=== PATIENT | female | born 1945 | race Caucasian/White ===

== ENCOUNTER 2020-10-21 17:19 | Inpatient (IN) | payer MEDICARE, OTHER ==
[~2020-10-21] VITALS: Ht 154.9 cm; Wt 61.7 kg
--- NOTE | 2020-10-21 17:19 | NUR ---
PT BIB FRIEND C/O COUGH, BODY PAIN X 1 WEEK. PT IS AAOX4, NOT IN RESPIRATORY DISTRESS, HOOKED TO BOILER CONTROL ROOM OPERATOR, KEPT RESTED AND COMFORTABLE. WILL CONTINUE TO MONITOR.
[2020-10-21] MEDS ORDERED: LEVO88TA5 PO (17:46)
[2020-10-21] MEDS ORDERED: ATOR40TA PO (17:46)
[2020-10-21] MEDS ORDERED: ISOS30TA86 PO (17:46)
[2020-10-21] MEDS ORDERED: BUPR100T7 PO (17:46)
--- NOTE | 2020-10-21 18:15 | NUR ---
IV LINE ESTABLISHED BLOOD DRAWN AND SENT TO LAB.
--- NOTE | 2020-10-21 18:20 | NUR ---
CATERER'S AIDE AT BEDSIDE FOR XRAY.
[2020-10-21] MEDS ORDERED: CEFEPIME 1 GM in IV D5W 50 ML IV ONE (18:30)
[2020-10-21] MEDS ORDERED: IV NS 0.9% 1,000 ML BAG IV ONE (18:30)
[2020-10-21] MEDS ORDERED: VANCOMYCIN 1 GM in IV D5W 250 ML IV ONE (18:30)
[2020-10-21] MEDS ORDERED: DONE5TAB34 PO ×2 (18:31→22:08)
[2020-10-21] MEDS ORDERED: EZET10TA6 PO (18:31)
[2020-10-21] MEDS ORDERED: KRIL1CAP PO (18:31)
[2020-10-21] MEDS ORDERED: SERT25TA PO (18:31)
[2020-10-21] MEDS ORDERED: CHOL200013 PO (18:31)
[2020-10-21] MEDS ORDERED: METO25TA4 PO (18:31)
--- NOTE | 2020-10-21 18:35 | NUR ---
PT UNABLE TO PROVIDE URINE SPECIMEN THIS TIME. PT REFUSED STRAIGHT CATH PROCEDURE.
--- NOTE | 2020-10-21 18:39 | NUR ---
STATISTICS TUTOR AT BEDSIDE FOR ULTRASOUND.
[2020-10-21 18:44] LABS: CALCIUM, SERUM 8.5 mg/dL (8.5-10.1); CARBON DIOXIDE 27 mmol/L (21-32); CHLORIDE 98 mmol/L (98-107); CREATININE 0.7 mg/dL (0.6-1.3); GLUCOSE 124 mg/dL (74-106); POTASSIUM 3.8 mmol/L (3.5-5.1); SODIUM SERUM 136 mmol/L (136-145); UREA NITROGEN, BLOOD 26 mg/dL (7-18)
[2020-10-21 18:49] LABS: ALANINE AMINOTRANSFERASE 93 U/L (12-78); ALBUMIN 3.2 g/dL (3.4-5.0); ALKALINE PHOSPHATASE 108 U/L (46-116); ASPARTATE AMINOTRANSFERASE 72 U/L (15-37); BILIRUBIN,DIRECT 0.1 mg/dL (0.0-0.2); BILIRUBIN,TOTAL 0.4 mg/dL (0.2-1.0); TOTAL PROTEIN, SERUM 7.3 g/dL (6.4-8.2)
[2020-10-21] MEDS ORDERED: IOHEXOL-300 100 ML VIAL IV ONE (19:11)
[2020-10-21] MEDS ORDERED: CT SWABBABLE VALVE TRANS SET 1 EA INFUS.SET MC ONE (19:12)
[2020-10-21] MEDS ORDERED: IV NS 0.9% 250 ML IV ONE ×2 (19:12→20:11)
--- NOTE | 2020-10-21 19:12 | NUR ---
patient to CT via [place].
--- NOTE | 2020-10-21 19:32 | NUR ---
PATIENT'S O2 SATURATION AT 93%, PATIENT PLACED ON 2L N/C
--- NOTE | 2020-10-21 19:43 | NUR ---
COVID 19 RAPID SWAB SAMPLE COLLECTED AND SENT TO THE LAB.
[2020-10-21 19:45] LABS: BASOPHILS # (AUTO) 0.1 /CMM (0.0-0.2); BASOPHILS % (AUTO) 0.6 % (0.0-2.0); EOSINOPHILS % (AUTO) 0.3 % (0.0-6.0); HEMATOCRIT 34 % (33-45); HEMOGLOBIN 11.3 g/dL (11.5-14.8); LYMPHOCYTES # (AUTO) 1.1 /CMM (0.8-4.8); LYMPHOCYTES % (AUTO) 11.6 % (20.0-44.0); MEAN CORPUSCULAR HGB CONC 33 g/dl (31.0-36.0); MEAN CORPUSCULAR VOLUME 90 fL (82-100); NEUTROPHILS # (AUTO) 7.4 /CMM (1.8-8.9); NEUTROPHILS % (AUTO) 77.5 % (43.0-81.0); PLATELET COUNT (AUTO) 419 /CMM (150-450); RED BLOOD CELL COUNT(AUTO) 3.75 MIL/uL (4.0-5.2); WHITE BLOOD COUNT (AUTO) 9.6 K/uL (4.3-11.0)
--- NOTE | 2020-10-21 20:08 | NUR ---
PATIENT TO CT VIA [facility]
[2020-10-21] MEDS ORDERED: IOHEXOL-350 100 ML VIAL IV ONE (20:09)
--- NOTE | 2020-10-21 21:39 | NUR ---
DR. AGOSTO PAGED PER ER ORDER.
--- NOTE | 2020-10-21 21:43 | NUR ---
ETIENNE MATUTE SPOKE TO DR. AGOSTO REGARDING PT.
[2020-10-21] MEDS ORDERED: METO25TA3 PO (22:08)
[2020-10-21] MEDS ORDERED: DONE5TAB7 PO (22:08)
[2020-10-21] MEDS ORDERED: OMEG1CAP PO (22:08)
--- NOTE | 2020-10-21 22:34 | NUR ---
REPORT GIVEN TO TEVIN WINN FOR BRUNA.
[2020-10-21 22:43] LABS: THYROID STIMULATING HORMONE 2.762 uIU/mL (0.358-3.74)
--- NOTE | 2020-10-21 23:15 | NUR ---
RN NOTE RECEIVED PATIENT FROM ER VIA HEIDE ACCOMPANIED BY BONI WINN AND ANOTHER ER STAFF; ADMITTING DIAGNOSIS OF LARGE PERICARDIAL EFFUSION, AND BILATERAL PLEURAL EFFUSION; COVID RAPID TEST IS NEGATIVE. PATIENT AWAKE, ALERT AND ORIENTED X4. COMPLAINS OF ABDOMINAL PAIN. IN NO S/SX OF ACUTE DISTRESS AT THIS TIME. PATIENT'S BREATHING IS EVEN AND UNLABORED. PATIENT IS ON 2L OF OXYGEN VIA NC, TOLERATING WELL, SATURATION AT 98%. ST ON THE MONITOR, HR IS 104. NOTED IV SITE ON RAC 18G, FLUSHING AND PATENT, SALINE LOCKED. NO S/S OF INFECTION OR INFILTRATION. PATIENT KEPT CLEAN , DRY AND COMFORTABLE.SAFETY MEASURES HAVE BEEN PROVIDED AND IMPLEMENTED. PATIENT BED ALARM IS ON. HEAD OF BED ELEVATED. BED IS LOCKED, IN LOWEST POSITION AND SIDE RAILS UP. CALL LIGHT WITHIN REACH OF THE PATIENT. WILL CONTINUE TO MONITOR AND REASSESS FOR ANY CHANGES. WILL ATTEND TO ALL MD ADMITTING ORDERS. CODE STATUS VERIFIED WITH PATIENT, SAID SHE WISHES TO BE DNR, AND DOES NOT WANT ANY TUBE DOWN HER THROAT WHEN THE NEED ARISES. COGNOS REPORT DEVELOPERPA MCCULLOUGH PRESENT. DR MCINTYRE WAS NOTIFIED OF CODE STATUS, ACKNOWLEDGED AND ORDERED DNR/DNI.
[2020-10-21 23:30] LABS: BILIRUBIN,URINE NEGATIVE (NEGATIVE); COLOR,URINE YELLOW (YELLOW); LEUKOCYTE ESTERASE ,URINE NEGATIVE (NEGATIVE); NITRITE, URINE NEGATIVE (NEGATIVE); PH,URINE 6.5 (5.0-8.0); PROTEIN,URINE TRACE mg/dl (NEGATIVE); UGLUCOSE NEGATIVE (NEGATIVE); UROBILINOGEN,URINE 0.2 EU/dL (0.2)
[2020-10-21] MEDS ORDERED: Z GUARD REMEDY 2 OZ OINT TP PRN (23:30)
[2020-10-21] MEDS ORDERED: ONDANSETRON HCL/PF 4 MG/2 ML VIAL IVP PRN (23:30)
[2020-10-21] MEDS ORDERED: HYDROCODONE/APAP 5/325MG TABLET PO PRN (23:30)
[2020-10-21] MEDS ORDERED: ACETAMINOPHEN 325 MG TABLET PO PRN (23:30)
[2020-10-21] MEDS ORDERED: MAG HYDROX/AL HYDROX/SIMETH 30 ML UDC PO PRN (23:30)
[2020-10-21] MEDS ORDERED: MAGNESIUM HYDROXIDE 30 ML UDC PO PRN (23:30)
[2020-10-21 23:54] LABS: BACTERIA,URINE None seen /HPF (None Seen); RBC,URINE 0-2 /HPF (0-2); SQUAMOUS EPITHELIAL CELL,UR Few /HPF (None Seen); WBC,URINE 0-2 /HPF (0-3)
--- NOTE | 2020-10-21 23:55 | NUR ---
RN NOTE TELEPHONE CALL TO ER AT EXT [phone], VERIFIED IF INDOMETHACIN 50 MG ORDERED ONE TIME WAS ADMINISTERED, SPOKE WITH BONI WINN, HE SAID. NO. GEOLOGICAL ENGINEERPA MCCULLOUGH MADE AWARE
--- NOTE | 2020-10-21 23:57 | NUR ---
RN NOTE VERIFIED ORDER FOR INDOMETHACIN 50 MG, EMAR SHOWING DOSE SCHEDULED FOR 2200 Q8H, AND ANOTHER ONE AT [address] MCINTYRE, ONE IS LOADING DOSE, SUCCEEDING ARE SCHEDULED. OWNER/PHOTOGRAPHERPA BLACKMON.
[2020-10-22] VITALS (21 sets, daily range): BP systolic 96–138; BP diastolic 58–89
--- NOTE | 2020-10-22 00:10 | NUR ---
RN NOTE INDOMETHACIN UNAVAILABLE, COORDINATOR OF REHABILITATION SERVICES UNABLE TO PULL OUT MEDS WELL. NURSING SPRING MACHINE OPERATOR WAS NOTIFIED, AND WAS ABLE TO PULL OUT DOSE FOR 2200, AND 2230. WILL FOLLOW UP REGARDING DOSE FOR 0500.
[2020-10-22] MEDS ORDERED: INDOMETHACIN 25 MG CAPSULE ONE ×2 (01:03→01:09)
[2020-10-22] MEDS: INDOMETHACIN 25 MG CAPSULE PO ONE ×2 (01:08→02:02)
[2020-10-22] MEDS: INDOMETHACIN 25 MG CAPSULE PO SCH ×4 (01:12→21:16)
--- NOTE | 2020-10-22 05:00 | NUR ---
RN NOTE TELEPHONE CALL TO NURSING EGG AND SPICE MIXER REGARDING 0500 DOSE OF INDOMETHACIN 50 MG, SHE SAID TO ADVISE PHARMACY OF TIME INITIAL DOSE WAS STARTED ORDER IS FOR Q8H AND SCHEDULE MAY NEED TO BE CHANGED. AWS DEVELOPERPA MCCULLOUGH AWARE.
[2020-10-22 06:41] LABS: BASOPHILS % (AUTO) 0.6 % (0.0-2.0); EOSINOPHILS % (AUTO) 0.7 % (0.0-6.0); HEMATOCRIT 31 % (33-45); HEMOGLOBIN 10.6 g/dL (11.5-14.8); LYMPHOCYTES # (AUTO) 0.8 /CMM (0.8-4.8); LYMPHOCYTES % (AUTO) 13.1 % (20.0-44.0); MEAN CORPUSCULAR HGB CONC 34 g/dl (31.0-36.0); MEAN CORPUSCULAR VOLUME 90 fL (82-100); MONOCYTES # (AUTO) 0.5 /CMM (0.1-1.30); MONOCYTES % (AUTO) 8.3 % (2.0-12.0); NEUTROPHILS # (AUTO) 4.7 /CMM (1.8-8.9); NEUTROPHILS % (AUTO) 77.3 % (43.0-81.0); PLATELET COUNT (AUTO) 392 /CMM (150-450); RED BLOOD CELL COUNT(AUTO) 3.48 MIL/uL (4.0-5.2); WHITE BLOOD COUNT (AUTO) 6.1 K/uL (4.3-11.0)
--- NOTE | 2020-10-22 06:56 | NUR ---
RN NOTE TELEPHONE CALL FROM PATIENT'S DAUGHTER, LOCO [phone], ASKING FOR UPDATES REGARDING PATIENT. RELAYED AVAILABLE INFORMATION. SHE ASKED IF SHE CAN SPEAK WITH THE MD. TOLD HER THIS WILL BE NOTED AND ENDORSED TO AM SHIFT RN TO COORDINATE THE CALL.
--- NOTE | 2020-10-22 07:20 | NUR ---
RN NOTE TELEPHONE CALL TO PHARMACY AT [phone], SPOKE TO WILIAN, TOLD HER REGARDING INAVAILABILITY OF INDOMETHACIN AND WHY IT WAS ADMINISTERED LATE, SHE STATED TO NON ADMINISTER 0500 DOSE, AND NEXT DOSE SHOULD BE 0100. RELAYED INFORMATION TO ROGER GIBBS RN. [facility] [employer] JAMEL MADE AWARE
[2020-10-22 07:29] LABS: CALCIUM, SERUM 7.5 mg/dL (8.5-10.1); CREATININE 0.6 mg/dL (0.6-1.3); MAGNESIUM 2.2 mg/dL (1.8-2.4); PHOSPHORUS 3.2 mg/dL (2.5-4.9); POTASSIUM 3.8 mmol/L (3.5-5.1)
--- NOTE | 2020-10-22 07:40 | NUR ---
RN OPENING NOTES RECEIVED PATIENT A&0X4. ON 2L NASAL CANNULA AND NOT IN ANY RESPIRATORY DISTRESS. SR/ST ON TELEMETRY. PERIPHERAL LINE IN PLACE. APPEARS SAD AND RN LISTENED TO PATIENT'S FEELINGS. SAFETY CHECKS IN PLACE. WILL CONTINUE TO MONITOR.
--- NOTE | 2020-10-22 07:53 | NUR ---
RN NOTE STATUS CHANGED TO TELE.
[2020-10-22] MEDS: EZETIMIBE 10 MG TABLET PO SCH (08:11)
[2020-10-22] MEDS: PANTOPRAZOLE 40 MG TABLET.DR PO SCH (08:11)
[2020-10-22] MEDS: CHOLECALCIFEROL 1,000 UNIT TABLET (VIT D3) PO SCH (08:11)
[2020-10-22] MEDS: SERTRALINE HCL 25 MG TABLET PO SCH (08:12)
[2020-10-22] MEDS: DONEPEZIL 5 MG TABLET PO SCH (08:12)
[2020-10-22] MEDS: METOPROLOL SUCCINATE 25 MG TAB.SR.24H PO SCH (08:15)
[2020-10-22] MEDS ORDERED: DONEPEZIL 5 MG TABLET PO SCH (09:00)
[2020-10-22 09:09] LABS: ALBUMIN 2.7 g/dL (3.4-5.0); BILIRUBIN,TOTAL 0.4 mg/dL (0.2-1.0); CALCIUM, SERUM 7.6 mg/dL (8.5-10.1); CREATININE 0.7 mg/dL (0.6-1.3); POTASSIUM 4.1 mmol/L (3.5-5.1); TOTAL PROTEIN, SERUM 6.4 g/dL (6.4-8.2)
--- NOTE | 2020-10-22 09:45 | NUR ---
MERCERIZING RANGE FEEDER NOTES PATIENT TRANSPORTED TO ICU WITH PA LUCERO VIA ACLS PROTOCOL. PATIENT NOT IN ANY DISTRESS AND WAS STABLE DURING TRANSFER AND ARRIVAL AT ROOM 260. REPORT GIVEN TO PA LY FOR CONTINUITY OF CARE. PATIENT BELONGINGS AT BEDSIDE.
--- NOTE | 2020-10-22 10:00 | NUR ---
BAGGAGE AGENT NOTES RECEIVED PATIENT FROM MILY, VSS, NOT IN ANY SIGNS OF DISTRESS, A/O X4, ON OXYGEN 3LPM VIA NC, IV ACCESS ON RAC #18,PATENT AND INTACT, CARDIAC MONITORS CONNECTED, SAFETY MEASURES INITIATED, BED IN LOWEST LOCKED POSITION WITH SIDE RAILS UP X2, CALL LIGHT WITHIN REACH, WILL CONTINUE TO MONITOR.
--- NOTE | 2020-10-22 13:00 | NUR ---
VASCULAR TECHNICIAN NOTES SEEN AND EXAMINED BY DR. WHALEN, ORDER TO BE NPO AFTER MIDNIGHT, BLOOD TRANSFUSION IN AM AND SUBXIPHOID PERICARDIAL WINDOW AT 12 NOON TOMORROW 10/23. CONSENT SIGNED.
[2020-10-22] MEDS: SOD FERRIC GLUC 125 MG in IV NS 0.9% 100 ML IV SCH (13:33)
[2020-10-22] MEDS: LORAZEPAM 1 MG TABLET PO PRN ×2 (15:15→21:16)
--- NOTE | 2020-10-22 18:39 | NUR ---
QUALITY CONTROL TECH RAW MATERIALS NOTES PATIENT IN BED RESTING COMFORTABLY IN MODERATE HIGH BACK REST. FAMILY AT BEDSIDE. A/O X4, ON OXYGEN 3LPM VIA NC, IV ACCESS ON RAC #18,PATENT AND INTACT, SAFETY MEASURES IN PLACE, BED IN LOWEST LOCKED POSITION WITH SIDE RAILS UP X2, CALL LIGHT WITHIN REACH, WILL ENDORSE TO QA INTERNSHIP NURSE FOR BRUNA.
--- NOTE | 2020-10-22 19:46 | NUR ---
RETAIL SHIFT SUPERVISOR RCD PT W/DX BL PLEURAL EFFUSION. PT IS A/Ox4. NSR ON MONITOR. ON O2 3L VIA NC. SKIN INTACT. NPO P MN FOR POSSIBLE PROCEDURE.
[2020-10-22] MEDS: ATORVASTATIN 40 MG TABLET PO SCH (21:16)
--- NOTE | 2020-10-22 22:20 | NUR ---
RN NOTES, RECEIVED PATIENT FROM SHIRLEY WINN FOR CONTINUATION OF CARE, PATIENT SLEEPING AT THIS TIME, NO DISTRESS NOTED, WILL CONTINUE TO MONITOR CLOSELY.
[2020-10-23] VITALS (39 sets, daily range): BP systolic 95–144; BP diastolic 55–92
[2020-10-23 04:44] LABS: BASOPHILS % (AUTO) 0.8 % (0.0-2.0); EOSINOPHILS % (AUTO) 3.5 % (0.0-6.0); HEMATOCRIT 30 % (33-45); HEMOGLOBIN 10.1 g/dL (11.5-14.8); LYMPHOCYTES # (AUTO) 0.8 /CMM (0.8-4.8); LYMPHOCYTES % (AUTO) 14.2 % (20.0-44.0); MEAN CORPUSCULAR HGB CONC 33 g/dl (31.0-36.0); MEAN CORPUSCULAR VOLUME 91 fL (82-100); MONOCYTES # (AUTO) 0.5 /CMM (0.1-1.30); MONOCYTES % (AUTO) 8.8 % (2.0-12.0); NEUTROPHILS % (AUTO) 72.7 % (43.0-81.0); PLATELET COUNT (AUTO) 356 /CMM (150-450); RED BLOOD CELL COUNT(AUTO) 3.34 MIL/uL (4.0-5.2); WHITE BLOOD COUNT (AUTO) 5.5 K/uL (4.3-11.0)
[2020-10-23] MEDS: INDOMETHACIN 25 MG CAPSULE PO SCH ×3 (05:00→21:12)
[2020-10-23 05:03] LABS: CALCIUM, SERUM 7.9 mg/dL (8.5-10.1); CREATININE 0.7 mg/dL (0.6-1.3); MAGNESIUM 2.3 mg/dL (1.8-2.4); PHOSPHORUS 3.9 mg/dL (2.5-4.9); POTASSIUM 4.1 mmol/L (3.5-5.1)
--- NOTE | 2020-10-23 07:00 | NUR ---
RN NOTES, PATIENT IN BED WITH SOB/ANXIOUS AT THIS TIME, NPO SINCE MIDNIGHT, ASKING FOR ATIVAN ASKED COLTON MCINTYRE MOTOR HOTEL MANAGER AND SWITCH ORDER TO IV, CHANGED ORDER AND AWAITING FOR PHARMACY TO VERIFIED, ON 4LPM VIA MS, NPO FOR POSSIBLE PROCEDURE TODAY, ENDORSED CONTINUITY OF CARE TO JOHNATHAN WINN. ALL NEEDS PROVIDED, CALL LIGHT W/I REACH.
[2020-10-23] MEDS: LORAZEPAM INJ 2 MG/ML VIAL IV PRN ×2 (07:30→19:31)
[2020-10-23] MEDS: PANTOPRAZOLE 40 MG TABLET.DR PO SCH (07:30)
[2020-10-23] MEDS: CHOLECALCIFEROL 1,000 UNIT TABLET (VIT D3) PO SCH (09:00)
[2020-10-23] MEDS: METOPROLOL SUCCINATE 25 MG TAB.SR.24H PO SCH (09:00)
[2020-10-23] MEDS: SERTRALINE HCL 25 MG TABLET PO SCH (09:00)
[2020-10-23] MEDS: DONEPEZIL 5 MG TABLET PO SCH (09:00)
[2020-10-23] MEDS: EZETIMIBE 10 MG TABLET PO SCH (09:00)
--- NOTE | 2020-10-23 09:16 | NUR ---
RN NOTE 0715: Received patient awake, A/Ox4, verbalizing agitation. With PIV intact. VSS. On 3 LPM O2 via NC, noted with wheezing. Clarified with patient, she said she is DNR and no intubation. Call light at reach. Per patient she wanted to have the pericardiocentesis first. 0825: Signed consent for pericardiocentesis. Ativan IV given as ordered. Advised to rest for now, and not to talk too much. 0840: S/E by Dr. Coe, no new order at this time. 0910: Patient is resting well at this time. WIll continue to monitor.
[2020-10-23] MEDS ORDERED: KETAMINE HCL (500MG/10ML) 50 MG/ML VIAL ONE (12:10)
[2020-10-23] MEDS ORDERED: MIDAZOLAM HCL 2 MG/2ML VIAL ONE (12:11)
[2020-10-23] MEDS ORDERED: BUPIVACAINE 0.5 % PF 150 MG/30 ML VIAL ONE (12:20)
--- NOTE | 2020-10-23 12:20 | NUR ---
RN NOTE Picked up by OR staffs. Jeanine/Jack, VSS.
[2020-10-23] MEDS ORDERED: CELLULOSE,OXIDIZED 1 PKT EACH MC ONE (12:23)
[2020-10-23] MEDS ORDERED: GLYCOPYRROLATE 0.2 MG/ML VIAL IV ONE (14:00)
[2020-10-23] MEDS ORDERED: ALBUTEROL FS 2.5 MG/3 ML VIAL.NEB ONE (14:08)
[2020-10-23] MEDS: SOD FERRIC GLUC 125 MG in IV NS 0.9% 100 ML IV SCH (14:09)
[2020-10-23] MEDS ORDERED: MORPHINE SULFATE INJ 2 MG/ML DISP.SYRIN IV PRN (15:00)
[2020-10-23] MEDS ORDERED: MORPHINE SULFATE INJ 4 MG/ML DISP.SYRIN IV PRN (15:00)
--- NOTE | 2020-10-23 15:56 | NUR ---
RN NOTE 1500: Endorsed by Recovery nurse, ALONSO, patient awake, weak. With Right radial arterial line, zeroed, with good waveform. With Abdominal incision dressing CDI, with JUDITH drain draining serosanguineous. 10LPM via simple mask. 1550: Changed linens and rendered care, tolerated. Placed on 6LPM of O2 via NC from 10LPM simple mask, tolerating.
--- NOTE | 2020-10-23 19:28 | NUR ---
QUILL SKINNER OPENING NOTES: Rec'd pt in bed, A&Ox4, able to make needs known. On 6LPM NC, no resp distress noted at this time. ST w/ BBB on tele monitor. IV site on RAC #18 patent and flushed. Dressings c/d/i. Right radial A-line intact. Abdominal surgical incision dressing c/d/i.JUDITH drain noted draining serosanguineous output. Safety measures in place. Will continue to monitor.
[2020-10-23] MEDS: ATORVASTATIN 40 MG TABLET PO SCH (21:12)
--- NOTE | 2020-10-23 23:26 | NUR ---
SOLID WASTE ANALYST NOTE: Endorsed pt to PA Kruse for BRUNA.
[2020-10-24] VITALS (16 sets, daily range): BP systolic 85–129; BP diastolic 50–78
[2020-10-24] MEDS: INDOMETHACIN 25 MG CAPSULE PO SCH ×3 (04:26→20:51)
[2020-10-24 04:53] LABS: CALCIUM, SERUM 7.7 mg/dL (8.5-10.1); CARBON DIOXIDE 29 mmol/L (21-32); CHLORIDE 104 mmol/L (98-107); CREATININE 0.5 mg/dL (0.6-1.3); GLUCOSE 104 mg/dL (74-106); MAGNESIUM 2.2 mg/dL (1.8-2.4); PHOSPHORUS 3.3 mg/dL (2.5-4.9); POTASSIUM 3.3 mmol/L (3.5-5.1); SODIUM SERUM 140 mmol/L (136-145); UREA NITROGEN, BLOOD 14 mg/dL (7-18)
[2020-10-24 05:25] LABS: BASOPHILS % (AUTO) 0.6 % (0.0-2.0); EOSINOPHILS % (AUTO) 1.4 % (0.0-6.0); HEMATOCRIT 30 % (33-45); HEMOGLOBIN 10.2 g/dL (11.5-14.8); LYMPHOCYTES # (AUTO) 0.8 /CMM (0.8-4.8); LYMPHOCYTES % (AUTO) 10.9 % (20.0-44.0); MEAN CORPUSCULAR HGB CONC 34 g/dl (31.0-36.0); MEAN CORPUSCULAR VOLUME 90 fL (82-100); MONOCYTES # (AUTO) 0.6 /CMM (0.1-1.30); MONOCYTES % (AUTO) 8.3 % (2.0-12.0); NEUTROPHILS # (AUTO) 5.5 /CMM (1.8-8.9); NEUTROPHILS % (AUTO) 78.8 % (43.0-81.0); PLATELET COUNT (AUTO) 395 /CMM (150-450); RED BLOOD CELL COUNT(AUTO) 3.37 MIL/uL (4.0-5.2); WHITE BLOOD COUNT (AUTO) 6.9 K/uL (4.3-11.0)
--- NOTE | 2020-10-24 06:00 | NUR ---
RN NOTE LAB REVIEWED AT AM POTASSIUM IS 3.3 CALLED DNP MIGUELINA WITH NEW ORDER POTASSIUM 4OMEQ ONE TIME ONLY NOTED AND CARRIED OUT.
[2020-10-24] MEDS ORDERED: POTASSIUM CHLORIDE 20 MEQ POWDER PACKET PO ONE (06:30)
--- NOTE | 2020-10-24 06:59 | NUR ---
RN CLOSING NOTE PATIENT REMAINS ON ALERT ORIENTED X4 VERBALLY RESPONSIVE NO SOB NOT ACUTE NOTED ON 6L OXYGEN VIA NASAL CANNULA, O2:95% ALL DUE MEDS GIVEN MD ORDERED KEPT CLEAN AND DRY ALL THE TIME,ENDORSE NEXT COMING SHIFT FOR CONTINUATION OF CARE.
--- NOTE | 2020-10-24 07:40 | NUR ---
RN NOTE PATIENT IS CURRENTLY IN BED WITH HOB AT SEMI FOWLERS POSITION. PATIENT IS ON 6L NC WITH NO SIGNS OF LABORED BREATHING. PATIENT IS AOX4. RAC 18G IS PATENT AND INTACT. RIGHT RADIAL ARTERIAL LINE IS NOTED. BED IS LOCKED IN THE LOWEST POSITION, 3 GUARD RAILS RAISED, CALL JI WITHIN REACH, AND ALL HOSPITAL SAFETY PRECAUTIONS ARE BEING FOLLOWED. WILL CONTINUE TO MONITOR THROUGHOUT SHIFT.
[2020-10-24] MEDS: PANTOPRAZOLE 40 MG TABLET.DR PO SCH (07:42)
[2020-10-24] MEDS ORDERED: POTASSIUM CHLORIDE 20 MEQ TAB.PRT.SR PO SCH (09:00)
[2020-10-24 09:02] LABS: ALANINE AMINOTRANSFERASE 84 U/L (12-78); ALBUMIN 2.2 g/dL (3.4-5.0); ALKALINE PHOSPHATASE 83 U/L (46-116); ASPARTATE AMINOTRANSFERASE 55 U/L (15-37); BILIRUBIN,TOTAL 0.2 mg/dL (0.2-1.0); CALCIUM, SERUM 7.6 mg/dL (8.5-10.1); CARBON DIOXIDE 27 mmol/L (21-32); CHLORIDE 107 mmol/L (98-107); CREATININE 0.5 mg/dL (0.6-1.3); GLUCOSE 98 mg/dL (74-106); POTASSIUM 3.7 mmol/L (3.5-5.1); SODIUM SERUM 144 mmol/L (136-145); TOTAL PROTEIN, SERUM 5.6 g/dL (6.4-8.2); UREA NITROGEN, BLOOD 15 mg/dL (7-18)
[2020-10-24] MEDS: SERTRALINE HCL 25 MG TABLET PO SCH (09:10)
[2020-10-24] MEDS: METOPROLOL SUCCINATE 25 MG TAB.SR.24H PO SCH (09:11)
[2020-10-24] MEDS: DONEPEZIL 5 MG TABLET PO SCH (09:11)
[2020-10-24] MEDS: EZETIMIBE 10 MG TABLET PO SCH (09:11)
[2020-10-24] MEDS: CHOLECALCIFEROL 1,000 UNIT TABLET (VIT D3) PO SCH (09:11)
--- NOTE | 2020-10-24 14:00 | NUR ---
RN NOTE TRANSFERRED PATIENT FROM ICU TO [facility]. PATIENT IS IN STABLE CONDITION.
[2020-10-24] MEDS: SOD FERRIC GLUC 125 MG in IV NS 0.9% 100 ML IV SCH (15:32)
--- NOTE | 2020-10-24 18:38 | NUR ---
RN NOTE PATIENT IS CURRENTLY IN BED WITH HOB AT SEMI FOWLERS POSITION. PATIENT IS ON 6L NC WITH NO SIGNS OF LABORED BREATHING. PATIENT IS AOX4. RAC 18G IS PATENT AND INTACT. JUDITH DRAIN IS NOTED WITH SEROSANGUINOUS FLUID. BED IS LOCKED IN THE LOWEST POSITION, 3 GUARD RAILS RAISED, CALL JI WITHIN REACH, AND ALL HOSPITAL SAFETY PRECAUTIONS ARE BEING FOLLOWED. ALL DUE MEDS GIVEN AND PATIENT REMAINED STABLE THROUGHOUT SHIFT.
--- NOTE | 2020-10-24 19:00 | NUR ---
RN OPENING NOTE RECEIVED PATIENT IN BED RESTING ALERT ORIENTED X4 VERBALLY RESPONSIVE ON 6L OXYGEN VIA NASAL CANNULA,O2:93% IV SITE IS ON RIGHT AC INTACT PATENT,JUDITH DRAIN IS NOTED WITH SEROSANGUINEOUS FLUID. INCONTINENT TO BOWEL/BLADDER, BED IN LOW POSITON AND LOCKED,CALL LIGHT WITHIN REACH,SAFETY MEASURE IMPLEMENT CONTINUE TO MONITOR.
[2020-10-24] MEDS: ATORVASTATIN 40 MG TABLET PO SCH (21:08)
[2020-10-24] MEDS: LORAZEPAM INJ 2 MG/ML VIAL IV PRN (21:46)
[2020-10-25] VITALS: BP 101/61
[2020-10-25 04:00] VITALS: BP 117/68
[2020-10-25] MEDS: INDOMETHACIN 25 MG CAPSULE PO SCH ×3 (04:03→21:52)
[2020-10-25 05:08] LABS: CANCER AG, 15-3 4.4 U/mL (0.0-25.0)
[2020-10-25 06:31] LABS: BASOPHILS # (AUTO) 0.1 /CMM (0.0-0.2); BASOPHILS % (AUTO) 0.8 % (0.0-2.0); EOSINOPHILS % (AUTO) 3.9 % (0.0-6.0); HEMATOCRIT 33 % (33-45); HEMOGLOBIN 11.1 g/dL (11.5-14.8); LYMPHOCYTES # (AUTO) 0.8 /CMM (0.8-4.8); LYMPHOCYTES % (AUTO) 13.4 % (20.0-44.0); MEAN CORPUSCULAR HGB CONC 33 g/dl (31.0-36.0); MEAN CORPUSCULAR VOLUME 90 fL (82-100); MONOCYTES # (AUTO) 0.7 /CMM (0.1-1.30); MONOCYTES % (AUTO) 10.5 % (2.0-12.0); NEUTROPHILS # (AUTO) 4.4 /CMM (1.8-8.9); NEUTROPHILS % (AUTO) 71.4 % (43.0-81.0); PLATELET COUNT (AUTO) 418 /CMM (150-450); RED BLOOD CELL COUNT(AUTO) 3.71 MIL/uL (4.0-5.2); WHITE BLOOD COUNT (AUTO) 6.2 K/uL (4.3-11.0)
[2020-10-25 06:40] LABS: CALCIUM, SERUM 7.7 mg/dL (8.5-10.1); CREATININE 0.5 mg/dL (0.6-1.3); GLUCOSE 132 mg/dL (74-106); UREA NITROGEN, BLOOD 12 mg/dL (7-18)
--- NOTE | 2020-10-25 06:45 | NUR ---
RN NOTE SEEN BY MD REMOVED JUDITH,NO DISCOMFORT NO BLEEDING NOTED CONTINUE TO MONITOR.
--- NOTE | 2020-10-25 06:50 | NUR ---
RN NOTE PATIENT REMAINS ON ALERT ORIENTED X4 VERBALLY RESPONSIVE ON 6L OXYGEN O2:99% NO SOB NOT ACUTE DISTRESS NOTED ALL DUE MEDS GIVEN MD ORDERED KEEP CLEAN AND DRY ALL THE TIME,ALL NEEDS MET ENDORSE NEXT COMING SHIFT FOR CONTINUATION OF CARE.
[2020-10-25 06:58] LABS: CARBON DIOXIDE 29 mmol/L (21-32); CHLORIDE 102 mmol/L (98-107); SODIUM SERUM 137 mmol/L (136-145)
--- NOTE | 2020-10-25 07:25 | NUR ---
RN OPENING NOTE PATIENT RECEIVED IN BED RESTING ALERT ORIENTED X4 VERBALLY RESPONSIVE. PATIENT ON O2 THERAPY VIA NC AT 6 LPM. IV SITE IS ON RIGHT AC INTACT PATENT. ABDOMINAL DRESSING NOTED. SAFETY PRECAUTIONS IMPLEMENTED, BED IN LOW POSITION AND LOCKED, CALL LIGHT WITHIN REACH, SIDE RAILS UP X2. WILL CONTINUE TO MONITOR AND PROVIDE CARE THROUGHOUT SHIFT.
[2020-10-25 08:00] VITALS: BP 133/71
[2020-10-25] MEDS: PANTOPRAZOLE 40 MG TABLET.DR PO SCH (09:57)
[2020-10-25] MEDS: DONEPEZIL 5 MG TABLET PO SCH (09:58)
[2020-10-25] MEDS: CHOLECALCIFEROL 1,000 UNIT TABLET (VIT D3) PO SCH (09:58)
[2020-10-25] MEDS: EZETIMIBE 10 MG TABLET PO SCH (09:58)
[2020-10-25] MEDS: METOPROLOL SUCCINATE 25 MG TAB.SR.24H PO SCH (09:58)
[2020-10-25] MEDS: SERTRALINE HCL 25 MG TABLET PO SCH (09:58)
[2020-10-25 12:00] VITALS: BP 127/78
[2020-10-25] MEDS: SOD FERRIC GLUC 125 MG in IV NS 0.9% 100 ML IV SCH (13:48)
[2020-10-25 16:00] VITALS: BP 100/58
--- NOTE | 2020-10-25 19:30 | NUR ---
RN NOTE RECEIVED PATIENT IN BED, AO X 4, IN NO S/SX OF ACUTE DISTRESS AT THIS TIME, BREATHING IS EVEN AND UNLABORED. PATIENT IS ON 5 L OF OXYGEN VIA NC; TOLERATING WELL, SATURATION AT 100%, HR IS 76. NOTED IV SITE AT R AC 18G, PATENT AND FLUSHING WELL, NO S/S OF INFECTION OR INFILTRATION. SAFETY MEASURES HAVE BEEN PROVIDED AND IMPLEMENTED. PATIENT BED ALARM IS ON. HEAD OF BED ELEVATED. BED IS LOCKED, IN LOWEST POSITION AND SIDE RAILS UP. CALL LIGHT WITHIN REACH OF THE PATIENT. WILL CONTINUE TO MONITOR AND REASSESS FOR ANY CHANGES.
--- NOTE | 2020-10-25 19:36 | NUR ---
RN CLOSING NOTE PATIENT IN BED RESTING ALERT ORIENTED X4 VERBALLY RESPONSIVE. PATIENT ON O2 THERAPY VIA NC AT 5 LPM. TITRATED DOWN PER VERBAL ORDERS FROM ADILENE PEDERSON. IV SITE IS ON RIGHT AC INTACT PATENT. ABDOMINAL DRESSING NOTED. SAFETY PRECAUTIONS IMPLEMENTED, BED IN LOW POSITION AND LOCKED, CALL LIGHT WITHIN REACH, SIDE RAILS UP X2. WILL ENDORSE CARE TO UPCOMING SHIFT.
[2020-10-25 20:00] VITALS: BP 140/65
[2020-10-25] MEDS: ATORVASTATIN 40 MG TABLET PO SCH (21:52)
[2020-10-25] MEDS: LORAZEPAM INJ 2 MG/ML VIAL IV PRN (22:03)
[2020-10-26 04:00] VITALS: BP 127/63
[2020-10-26] MEDS: INDOMETHACIN 25 MG CAPSULE PO SCH ×3 (04:28→21:15)
[2020-10-26 06:03] LABS: BASOPHILS % (AUTO) 0.8 % (0.0-2.0); EOSINOPHILS % (AUTO) 2.3 % (0.0-6.0); HEMATOCRIT 34 % (33-45); HEMOGLOBIN 11.3 g/dL (11.5-14.8); MEAN CORPUSCULAR HGB CONC 33 g/dl (31.0-36.0); MEAN CORPUSCULAR VOLUME 89 fL (82-100); MONOCYTES # (AUTO) 0.4 /CMM (0.1-1.30); MONOCYTES % (AUTO) 8.2 % (2.0-12.0); NEUTROPHILS # (AUTO) 3.8 /CMM (1.8-8.9); NEUTROPHILS % (AUTO) 69.7 % (43.0-81.0); PLATELET COUNT (AUTO) 429 /CMM (150-450); RED BLOOD CELL COUNT(AUTO) 3.82 MIL/uL (4.0-5.2); WHITE BLOOD COUNT (AUTO) 5.4 K/uL (4.3-11.0)
[2020-10-26 06:15] LABS: CALCIUM, SERUM 8.3 mg/dL (8.5-10.1); CARBON DIOXIDE 34 mmol/L (21-32); CHLORIDE 104 mmol/L (98-107); CREATININE 0.5 mg/dL (0.6-1.3); GLUCOSE 113 mg/dL (74-106); SODIUM SERUM 142 mmol/L (136-145); UREA NITROGEN, BLOOD 8 mg/dL (7-18)
[2020-10-26 08:00] VITALS: BP 135/74
[2020-10-26] MEDS: LORAZEPAM INJ 2 MG/ML VIAL IV PRN ×2 (08:18→21:22)
[2020-10-26] MEDS: CHOLECALCIFEROL 1,000 UNIT TABLET (VIT D3) PO SCH (08:21)
[2020-10-26] MEDS: SERTRALINE HCL 25 MG TABLET PO SCH (08:22)
[2020-10-26] MEDS: PANTOPRAZOLE 40 MG TABLET.DR PO SCH (08:22)
[2020-10-26] MEDS: METOPROLOL SUCCINATE 25 MG TAB.SR.24H PO SCH (08:23)
[2020-10-26] MEDS: EZETIMIBE 10 MG TABLET PO SCH (08:23)
[2020-10-26] MEDS: DONEPEZIL 5 MG TABLET PO SCH (08:27)
[2020-10-26] MEDS: SOD FERRIC GLUC 125 MG in IV NS 0.9% 100 ML IV SCH (14:15)
[2020-10-26 16:00] VITALS: BP 131/59
--- NOTE | 2020-10-26 19:40 | NUR ---
RN OPENING NOTES RECD PT IN BED, AWAKE. PT IS A/OX4. PT ON 2L OF O2 VIA NC, TOLERATING WELL. O2 SATURATION 96% NO SOB OR RESP DISTRESS. PT ON MED SURG MONITORING. IS AMBULATORY, EDUCATED PT ON USE OF CALL LIGHT BEFORE GETTING UP. PT VERBALIZED UNDERSTANDING. IV SITE RAC FLUSHED ASEPTICALLY. ALL NEEDS ATTENDED AT THIS TIME. SAFETY MEASURES IN PLACE. HOB ELEVATED TOLERATED. SIDE RAILS UP X2, BED LOCKED IN LOWEST POSITION WITH BED ALARM ON. CALL LIGHT WITHIN REACH. WILL CONT TO MONITOR.
[2020-10-26 20:00] VITALS: BP 113/66
--- NOTE | 2020-10-26 21:39 | NUR ---
RN NOTE PT VERBALIZES FEELINGS OF ANXIETY, PT REQUESTS MEDICATION. ATIVAN PRN ADMINISTERED ORDERED. WILL CONT TO MONITOR.
--- NOTE | 2020-10-26 22:03 | NUR ---
RN OPENING NOTES RECD PT IN BED, AWAKE. PT IS A/OX4. PT ON 2L OF O2 VIA NC, TOLERATING WELL. O2 SATURATION 96% NO SOB OR RESP DISTRESS. PT ON MED SURG MONITORING. IS AMBULATORY, EDUCATED PT ON USE OF CALL LIGHT BEFORE GETTING UP. PT VERBALIZED UNDERSTANDING. ALL NEEDS ATTENDED AT THIS TIME. SAFETY MEASURES IN PLACE. HOB ELEVATED TOLERATED. SIDE RAILS UP X2, BED LOCKED IN LOWEST POSITION WITH BED ALARM ON. CALL LIGHT WITHIN REACH. WILL CONT TO MONITOR. Addendum: 10/26/20 at 2206 by JARET NICHOLS RN DISREGARD THIS NOTE AND TIME.
[2020-10-27 04:00] VITALS: BP 132/63
[2020-10-27] MEDS: INDOMETHACIN 25 MG CAPSULE PO SCH (04:17)
[2020-10-27 06:41] LABS: CARBON DIOXIDE 35 mmol/L (21-32); CHLORIDE 105 mmol/L (98-107); CREATININE 0.5 mg/dL (0.6-1.3); GLUCOSE 106 mg/dL (74-106); MAGNESIUM 1.9 mg/dL (1.8-2.4); SODIUM SERUM 143 mmol/L (136-145)
--- NOTE | 2020-10-27 06:44 | NUR ---
RN CLOSING NOTES NO SIGNIFICANT CHANGES IN PT CONDITION. PT AT THIS TIME IS RESTING, AWAKENS EASILY. STILL ON 2L OF O2. NO S/S OF SOB OR RESP DISTRESS. TOLERATING WELL. PT AFEBRILE. ALL NEEDS ATTENDED. PT REFUSED BED BATH, MOTIVATED TO SELF CARE. LINENS CHANGED. HYGIENE SUPPLIES PROVIDED.SAFETY MEASURES IN PLACE. HOB ELEVATED. SIDE RAILS UP X2 BED LOCKED IN LOWEST POSITION BED ALARM ON. CALL LIGHT WITHIN REACH. WILL ENDORSE TO DAY SHIFT RN FOR CONTINUATION OF CARE
[2020-10-27 06:45] LABS: BASOPHILS # (AUTO) 0.1 /CMM (0.0-0.2); BASOPHILS % (AUTO) 1.3 % (0.0-2.0); EOSINOPHILS % (AUTO) 4.2 % (0.0-6.0); HEMATOCRIT 33 % (33-45); HEMOGLOBIN 11.2 g/dL (11.5-14.8); LYMPHOCYTES # (AUTO) 1.1 /CMM (0.8-4.8); LYMPHOCYTES % (AUTO) 14.4 % (20.0-44.0); MEAN CORPUSCULAR HGB CONC 34 g/dl (31.0-36.0); MEAN CORPUSCULAR VOLUME 89 fL (82-100); MONOCYTES # (AUTO) 0.5 /CMM (0.1-1.30); MONOCYTES % (AUTO) 7.3 % (2.0-12.0); NEUTROPHILS # (AUTO) 5.3 /CMM (1.8-8.9); NEUTROPHILS % (AUTO) 72.8 % (43.0-81.0); PLATELET COUNT (AUTO) 463 /CMM (150-450); RED BLOOD CELL COUNT(AUTO) 3.76 MIL/uL (4.0-5.2); WHITE BLOOD COUNT (AUTO) 7.3 K/uL (4.3-11.0)
[2020-10-27 06:56] LABS: UREA NITROGEN, BLOOD 14 mg/dL (7-18)
--- NOTE | 2020-10-27 07:30 | NUR ---
RN OPENING NOTE PATIENT RECEIVED IN BED RESTING ALERT ORIENTED X4 VERBALLY RESPONSIVE. PATIENT ON O2 THERAPY VIA NC AT 2 LPM. IV SITE IS ON RIGHT AC INTACT AND PATENT. SAFETY PRECAUTIONS IMPLEMENTED, BED IN LOW POSITION AND LOCKED, CALL LIGHT WITHIN REACH, SIDE RAILS UP X2. WILL CONTINUE TO MONITOR AND PROVIDE CARE THROUGHOUT SHIFT.
[2020-10-27 08:00] VITALS: BP 131/74
[2020-10-27] MEDS: PANTOPRAZOLE 40 MG TABLET.DR PO SCH (09:01)
[2020-10-27 09:02] VITALS: BP 131/74
[2020-10-27] MEDS: DONEPEZIL 5 MG TABLET PO SCH (09:02)
[2020-10-27] MEDS: SERTRALINE HCL 25 MG TABLET PO SCH (09:02)
[2020-10-27] MEDS: CHOLECALCIFEROL 1,000 UNIT TABLET (VIT D3) PO SCH (09:02)
[2020-10-27] MEDS: METOPROLOL SUCCINATE 25 MG TAB.SR.24H PO SCH (09:02)
--- NOTE | 2020-10-27 11:06 | NUR ---
CUT OUT OPERATOR NOTE PATIENT'S SPO2 88% ON ROOM AIR AT REST
[2020-10-27 11:07] LABS: *ANA ANTI-CENTROMERE B AB <0.2 AI (0.0-0.9); *ANA ANTI-DNA(DS) AB, QN 4 IU/mL (0-9); *ANA ANTI-JO-1 <0.2 AI (0.0-0.9); *ANA ANTICHROMATIN ANTIBODY <0.2 AI (0.0-0.9); *ANA RNP ANTIBODIES <0.2 AI (0.0-0.9); *ANA SJOGREN'S ANTI-SS-A <0.2 AI (0.0-0.9); *ANA SJOGREN'S ANTI-SS-B <0.2 AI (0.0-0.9); *ANAANTI-SCLERODERMA-70 AB <0.2 AI (0.0-0.9); *ANASMITH AB <0.2 AI (0.0-0.9)
--- NOTE | 2020-10-27 11:08 | NUR ---
COUNTER STACKER NOTE PATIENT'S SPO2 88% ON ROOM AIR AT REST
[2020-10-27] MEDS ORDERED: BENZ-13 PO (15:26)
[2020-10-27] MEDS ORDERED: GUAIFENESIN LA 600 MG TABLET.SA PO ONE (15:30)
[2020-10-27] MEDS ORDERED: BENZONATATE 100 MG CAPSULE PO ONE (15:30)
--- NOTE | 2020-10-27 18:56 | NUR ---
patient discharged from hospital in stable condition. patient discharge instructions and paperwork provided for client and family. care transferred over to family for transportation.
== END 2020-10-27 18:50 | disposition home or self-care (01) | DRG 271 ==
LOC: ER 17:19 → TELE-TD 22:12 → TELE1 10-22 07:44 → ICU 10-22 09:40 → TELE1 10-24 15:15 → MEDSG1 10-25 10:40
PROVIDERS: ADMIT Nurse Practitioner Acute Care; ATTEND Nurse Practitioner Family
PROC: 0W9D00Z Drainage of Pericardial Cavity with Drainage Device, Open Approach (ICD-10-PCS; principal; 2020-10-23)
PROC: 03HB33Z Insertion of Infusion Device into Right Radial Artery, Percutaneous Approach (ICD-10-PCS; 2020-10-23)
DX: I30.9 Acute pericarditis, unspecified (principal); E44.0 Moderate protein-calorie malnutrition; J90 Pleural effusion, not elsewhere classified; J98.11 Atelectasis; M48.50XA Collapsed vertebra, not elsewhere classified, site unspecified, initial encounter for fracture; I31.4 Cardiac tamponade; E78.5 Hyperlipidemia, unspecified; K57.30 Diverticulosis of large intestine without perforation or abscess without bleeding; E89.0 Postprocedural hypothyroidism; K75.9 Inflammatory liver disease, unspecified; Z79.899 Other long term (current) drug therapy; D50.9 Iron deficiency anemia, unspecified; F32.9 Major depressive disorder, single episode, unspecified; R74.01 Elevation of levels of liver transaminase levels; K75.3 Granulomatous hepatitis, not elsewhere classified; F03.90 Unspecified dementia, unspecified severity, without behavioral disturbance, psychotic disturbance, mood disturbance, and anxiety; I10 Essential (primary) hypertension; R79.89 Other specified abnormal findings of blood chemistry; E88.09 Other disorders of plasma-protein metabolism, not elsewhere classified; I70.0 Atherosclerosis of aorta; K59.00 Constipation, unspecified; Z79.890 Hormone replacement therapy; K76.1 Chronic passive congestion of liver; M41.9 Scoliosis, unspecified; Z90.710 Acquired absence of both cervix and uterus; Z98.890 Other specified postprocedural states
CPT/HCPCS: 36415; 71045-TC; 76700-TC; 80048-TC; 80053-TC; 80061-TC; 80076-TC; 81001; 82378; 82728-TC; 83540-TC; 83605-TC; 83615-TC; 83735-TC; 84100-TC; 84439-TC; 84443-TC; 84484-TC; 85025-TC; 85652-TC; 85730-TC; 86225; 86235; 86300; 86431-TC; 86480; 86706; 86803; 86850-TC; 87040-TC; 87070-TC; 87075-TC; 87081-TC; 87086-TC; 87102-TC; 87340; 88108-TC; 88305-TC; 93307-TC; 97112-TC; 97116-TC; 97530-TC; C9803; G0378; J0690; J0692; J2060; J2250; J2370; J2916; J3370; J3490; J7030; J7040; J7050; J7060; Q9967